=== PATIENT | male | born 1980 ===

== ENCOUNTER 2018-12-30 19:22 | Emergency (ER) | payer MEDICAID ==
[2018-12-30 19:29] VITALS: O2SAT 99
--- NOTE | 2018-12-30 20:59 | ED PDOC ---
Upper Extremity Pain/Injury Time Seen by Provider: 12/30/18 20:00 Chief Complaint (Nursing): Upper Extremity Problem/Injury Chief Complaint (Provider): Upper Extremity Problem History Per: Patient History/Exam Limitations: no limitations Onset/Duration Of Symptoms: Days (2x) Current Symptoms Are (Timing): Still Present Severity: Moderate Additional Complaint(s): 38 year old male with no pertinent past medical history presents to the ED for an evaluation of left arm pain ongoing for 2x days. 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 Patient denies any direct trauma to the shoulder, or falling onto the shoulder. PMD: Miles Hardy MD Past Medical History Reviewed: Historical Data, Nursing Documentation, Vital Signs Vital Signs: Last Vital Signs Temp 97.8 F 12/30/18 19:26 Pulse 83 12/30/18 19:26 Resp 16 12/30/18 19:26 BP 122/80 12/30/18 19:26 Pulse Ox 99 12/30/18 19:26 RADHIKA Report Viewed: Yes - Medical History PMH: No Chronic Diseases - Surgical History Surgical History: No Surg Hx - Family History Family History: States: No Known Family Hx - Social History Current smoker - smoking cessation education provided: Yes Alcohol: Occasional Drugs: Denies - Home Medications Home Medications: Ambulatory Orders Medication Instructions Recorded RX: Amoxicillin 500 mg PO BID #20 cap 08/22/14 RX: Ibuprofen 600 mg PO Q6 #20 tab 08/22/14 Fluticasone Nasal [Flonase] 1 spray NS DAILY #0 spr 09/02/14 Ibuprofen [Motrin] 600 mg PO Q6H PRN #20 tab 12/30/18 - Allergies Allergies/Adverse Reactions: Allergies Allergy/AdvReac Type Severity Reaction Status Date / Time No Known Allergies Allergy Unverified 08/22/14 15:45 Review of Systems ROS Statement: Except As Marked, All Systems Reviewed And Found Negative Musculoskeletal: Positive for: Shoulder Pain (left shoulder pain) Physical Exam - Reviewed Nursing Documentation Reviewed: Yes Vital Signs Reviewed: Yes - Physical Exam Appears: Positive for: Well, Non-toxic, No Acute Distress Head Exam: Positive for: ATRAUMATIC, NORMOCEPHALIC Skin: Positive for: Normal Color, Warm, Dry Extremity: Negative for: Normal ROM (left shoulder: ROM limited with abduction. (-) obvious dislocation, (-) bony stepoff). Neurovascular intact) Neurologic/Psych: Positive for: Alert, Oriented (3x) - ECG ECG Rhythm: Positive for: Normal QRS, Normal ST Segment, Sinus Rhythm (normal) Rate: 73 O2 Sat by Pulse Oximetry: 99 (RA) Pulse Ox Interpretation: Normal - Radiology X-Ray: Viewed By Me, Read By Radiologist (see MDM note) Medical Decision Making Medical Decision Makin:00 Initial impression: 38 year old male with left shoulder pain Initial plan: * XRay shoulder left * motrin tab 600 mg PO * reevaluation 22:41 XRay shoulder read and reviewed by radiologist FINDINGS: BONES: No acute fracture or aggressive appearing osseous lesion. JOINTS: No dislocation. The joint spaces are normal. SOFT TISSUES: The soft tissues are unremarkable. IMPRESSION: No acute abnormality evident on examination of the left shoulder. No acute fracture or dislocation. 22:58 Sling applied to left arm. Patient is stable for discharge home. instructed outpt follow up with orthopedics for mri shoulder to rule out rotator cuff injury Scribe Attestation: Documented by Johanne Head, acting as a scribe for Wing Juan MD. Provider Scribe Attestation: All medical record entries made by the Scribe were at my direction and personally dictated by me. I have reviewed the chart and agree that the record accurately reflects my personal performance of the history, physical exam, medical decision making, and the department course for this patient. I have also personally directed, reviewed, and agree with the discharge instructions and disposition. Disposition - Clinical Impression Clinical Impression: Shoulder pain, left - Patient ED Disposition Is Patient to be Admitted: No Counseled Patient/Family Regarding: Studies Performed, Diagnosis, Need For Followup - Disposition Referrals: Parminder Duncan MD [Staff Provider] - Disposition: Routine/Home Disposition Time: 23:00 Condition: IMPROVED Additional Instructions: follow up with orthopedist for further evaluation for rotator cuff injury return to the ED with any worsening or concerning symptoms Prescriptions: Ibuprofen [Motrin] 600 mg PO Q6H PRN #20 tab PRN Reason: Pain, Moderate (4-7) Instructions: Shoulder Pain (DC) Forms: [email or web address] (Yakut)
[2018-12-30 23:24] VITALS: BP 126/72; RESP 15; TEMP 98.2
[2018-12-31 02:55] VITALS: PULSE 73
--- NOTE | 2018-12-31 12:44 | RAD ---
Date of service: 12/30/2018 PROCEDURE: Radiographs of the Left Shoulder HISTORY: shoulder pain - L COMPARISON: No prior. FINDINGS: BONES: No acute fracture or destructive bony lesion identified. JOINTS: Normal. Glenohumeral and acromioclavicular joints preserved. No osteoarthritis. SOFT TISSUES: Normal. OTHER FINDINGS: None. IMPRESSION: Normal radiographs of the left shoulder.
--- NOTE | 2018-12-31 16:31 | CARD ---
APPROVED REPORT Date of service: 12/30/2018 EKG Measurement Heart [id number] <Conclusion> Normal sinus rhythm Nonspecific ST changes Abnormal Electrocardiogram
== END 2018-12-30 23:24 | disposition home or self-care (01) ==
LOC: H.ER 19:22
DX: F17.200 Nicotine dependence, unspecified, uncomplicated (principal); X50.0XXA Overexertion from strenuous movement or load, initial encounter